=== PATIENT | female | born 1950 | race Caucasian/White ===

== ENCOUNTER 2017-01-21 05:58 | Observation (INO) | payer OTHER, MEDICAID ==
[2017-01-21] MEDS ORDERED: MAALOX/LIDO/HYOSC GI COCKTAIL 55 ML BOTTLE PO ONE (06:07)
[2017-01-21] MEDS ORDERED: ONDANSETRON 4 MG/2 ML VIAL IVP ONE (06:07)
[2017-01-21] MEDS ORDERED: NS 1,000 ML IV ONE (06:07)
--- NOTE | 2017-01-21 06:08 | CPEKG ---
Heart Rate: 60 RR Interval: 1000 P-R Interval: 236 QRSD Interval: 74 QT Interval: 424 QTC Interval: 424 P [place]: 31 QRS [place]: 42 T Wave [place]: 49 EKG Severity - ABNORMAL ECG - EKG Impression: SINUS RHYTHM EKG Impression: FIRST DEGREE AV BLOCK Electronically Signed By: Osiris Arechiga 21-Jan-2017 07:06:55
[2017-01-21 06:12] LABS: % IMMATURE GRANULYOCYTES 0.1 % (0.0-1.1); ABSOLUTE IMMATURE GRANULOCYTES 0.01 10^3/uL (0.00-0.10); ADD DIFF? NO; ADD MORPH? NO; ADD SCAN? NO; ATYPICAL LYMPHOCYTE FLAG 20 (0-99); FRAGMENT RBC FLAG 0 (0-99); HEMATOCRIT 41.5 % (38.0-47.0); HEMOGLOBIN 13.9 g/dL (12.6-16.3); LEFT SHIFT FLG 0 (0-99); LIPEMIA HEMOLYSIS FLAG 80 (0-99); MEAN CELL HEMOGLOBIN CONCENTR. 33.5 g/dL (32.4-36.7); MEAN CELL VOLUME 92.6 fL (81.5-99.8); PLATELET CLUMPS FLAG 0 (0-99); PLATELET COUNT 364 10^3/uL (150-400); RED BLOOD CELL COUNT 4.48 10^6/uL (4.18-5.33); RED CELL DISTRIBUTION WIDTH 12.8 % (11.5-15.2)
[2017-01-21 06:35] LABS: ALANINE AMINOTRANSFERASE 36 IU/L (9-52); ALBUMIN 4.3 g/dL (3.5-5.0); ALKALINE PHOSPHATASE 122 IU/L (38-126); ANION GAP 13 mEq/L (8-16); ASPARTATE AMINOTRANSFERASE 22 IU/L (14-46); BILIRUBIN,TOTAL 0.7 mg/dL (0.1-1.4); BILIRUBIN-CONJUGATED 0.3 mg/dL (0.0-0.5); BILIRUBIN-UNCONJUGATED 0.4 mg/dL (0.0-1.1); CALCIUM 9.4 mg/dL (8.5-10.4); CARBON DIOXIDE 23 mEq/l (22-31); CHLORIDE 106 mEq/L (97-110); CREATININE 0.9 mg/dL (0.6-1.0); GLOMERULAR FILTRATION RATE > 60; GLUCOSE 115 mg/dL (70-100); POTASSIUM 3.4 mEq/L (3.5-5.2); SODIUM 142 mEq/L (134-144); TOTAL PROTEIN 7.9 g/dL (6.3-8.2)
--- NOTE | 2017-01-21 06:42 | EDPHY ---
H & P Stated Complaint: chest pain/pressure on waking at approx 0430 this am Source: Patient Exam Limitations: No limitations - Personal History Tetanus Vaccine Date: last 10 years - Medical/Surgical History Hx Asthma: No Hx Chronic Respiratory Disease: Yes Hx Diabetes: No Hx Cardiac Disease: Yes Hx Renal Disease: No Hx Cirrhosis: No Hx Alcoholism: No Hx HIV/AIDS: No Hx Splenectomy or Spleen Trauma: No Other PMH: HTN, depression, GERD, right rotator cuff surgery, hiatal hernia, sleep apnea - Social History Smoking Status: Former smoker HPI/ROS: HPI The patient presents with chest and epigastric pain which began at approximately 4:30 a.m. this morning while she was lying in bed. She is brought in by ambulance. The pain is sharp, feels like gas, starts in her epigastrium and radiates to her right chest. It is moderate in severity and has been constant. It is associated with constipation. She does not have any shortness of breath, vomiting, diaphoresis or dizziness. She has had episodes of this pain before which she has attributed to gas pains.. REVIEW OF SYSTEMS Constitutional: No fever, no chills. Eyes: No discharge. ENT: No sore throat. Cardiovascular: No chest pain, no palpitations. Respiratory: No cough, no shortness of breath. Gastrointestinal: No abdominal pain, no vomiting. Genitourinary: No hematuria. Musculoskeletal: No back pain. Skin: No rashes. Neurological: No headache. PMHx: Hiatal hernia Soc Hx: Lives at home PHYSICAL General Appearance: Alert, no distress Eyes: Pupils equal and round no pallor or injection ENT, Mouth: Mucous membranes moist Respiratory: There are no retractions, lungs are clear to auscultation Cardiovascular: Regular rate and rhythm Gastrointestinal: Abdomen is soft with mild tenderness in the epigastrium without rebound or guarding Neurological: A&O, moves all extremities Skin: Warm and dry, no rashes Musculoskeletal: Neck is supple non tender Extremities: symmetrical, full range of motion Psychiatric: Patient is oriented X 3, there is no agitation (RiguzziOsiris) Constitutional: Initial Vital Signs Heart Rate 62 01/21/17 06:04 Respiratory Rate 18 01/21/17 06:04 Blood Pressure 136/109 H 01/21/17 06:04 O2 Sat (%) 98 01/21/17 06:04 O2 Delivery Mode Room Air Allergies/Adverse Reactions: celecoxib [From Celebrex] Allergy (Verified 01/21/17 08:25) Hives Penicillins Allergy (Verified 01/21/17 08:25) Itching Home Medications: Medication Instructions Recorded Lisinopril/Hydrochlorothiazide 1 each PO DAILY 01/28/16 [Zestoretic 20-25 Tablet] Meclizine HCl [Meclizine HCl 25 mg 25 mg PO BID PRN 01/28/16 (RX,OTC)] Omeprazole [Prilosec] 40 mg PO BID PRN 01/28/16 Sertraline HCl [Zoloft 100mg (*)] 100 mg PO DAILY 01/28/16 Herbals/Supplements -Info Only 1 ea PO DAILY 01/21/17 Ibuprofen [Motrin (*)] 800 mg PO DAILY PRN 01/21/17 Medical Decision Making - Diagnostics EKG Interpretation: EKG: Complete interpretation has been separately recorded in the Rev[facility] archive. Summary impression: Normal sinus rhythm, no ST segment changes (Osiris Arechiga) Imaging: Chest x-ray two view shows no infiltrate, no pneumothorax, interpreted by me, radiology interpretation is pending. (Osiris Arechiga) ED Course/Re-evaluation: 6:45 a.m.- The patient has received morphine, GI cocktail and Pepcid with some improvement in her symptoms. However, she is still uncomfortable, sitting up in bed and hyperventilating. She feels like if she could for she would feel better. I will write for additional pain medication for her and I will reassess her. 7:40 a.m.- The patient continues to have pain which is now radiating to her right arm and toward her neck. Repeat abdominal exam is benign, she has very mild epigastric tenderness. I feel bowel perforation would be unlikely. While I feel that GERD is possible, I am also concerned about ACS. I plan to admit her to the hospitalist service. 8:00 a.m.- I have discussed the case with the hospitalist service and I will order her a bed in the [facility]. The patient is aware of the plan. (Osiris Arechiga) 715: The patient is signed out to me at change of shift. The patient is admitted for further observation. Repeat troponin is ordered. Repeat EKG. Unchanged. (Alexandra Blake) Differential Diagnosis: This is a 66-year-old female with past medical history including hiatal hernia, GERD on PPI, hypertension who presents from home with chest pain that began at 4 :30 a.m. this morning. The pain begins in her epigastrium and radiates upwards. It is associated with nausea. Differential diagnosis includes gastritis, GERD, ACS, biliary colic, less likely aortic dissection given no back pain. Less likely pulmonary embolism given no hypoxia or tachycardia. (Osiris Arechiga) - Data Points Laboratory Results: Laboratory Results 01/21/17 05:58 01/21/17 05:58 01/21/17 01/21/17 05:58 05:58 WBC 7.97 10^3/uL 10^3/uL (3.80-9.50) RBC 4.48 10^6/uL 10^6/uL (4.18-5.33) Hgb 13.9 g/dL g/dL (12.6-16.3) Hct 41.5 % % (38.0-47.0) MCV 92.6 fL fL (81.5-99.8) MCH 31.0 pg pg (27.9-34.1) MCHC 33.5 g/dL g/dL (32.4-36.7) RDW 12.8 % % (11.5-15.2) Plt Count 364 10^3/uL 10^3/uL (150-400) MPV 10.0 fL fL (8.7-11.7) Neut % (Auto) 51.9 % % (39.3-74.2) Lymph % (Auto) 36.8 % % (15.0-45.0) [place] % (Auto) 6.5 % % (4.5-13.0) Eos % (Auto) 3.8 % % (0.6-7.6) Baso % (Auto) 0.9 % % (0.3-1.7) Nucleat RBC Rel Count 0.0 % % (0.0-0.2) Absolute Neuts (auto) 4.14 10^3/uL 10^3/uL (1.70-6.50) Absolute Lymphs (auto) 2.93 10^3/uL 10^3/uL (1.00-3.00) Absolute Monos (auto) 0.52 10^3/uL 10^3/uL (0.30-0.80) Absolute Eos (auto) 0.30 10^3/uL 10^3/uL (0.03-0.40) Absolute Basos (auto) 0.07 10^3/uL 10^3/uL (0.02-0.10) Absolute Nucleated RBC 0.00 10^3/uL 10^3/uL (0-0.01) Immature Gran % 0.1 % % (0.0-1.1) Immature Gran # 0.01 10^3/uL 10^3/uL (0.00-0.10) Sodium 142 mEq/L mEq/L (134-144) Potassium 3.4 mEq/L L mEq/L (3.5-5.2) Chloride 106 mEq/L mEq/L (97-110) Carbon Dioxide 23 mEq/l mEq/l (22-31) Anion Gap 13 mEq/L mEq/L (8-16) BUN 19 mg/dL mg/dL (7-23) Creatinine 0.9 mg/dL mg/dL (0.6-1.0) Estimated GFR > 60 Glucose 115 mg/dL H mg/dL (70-100) Calcium 9.4 mg/dL mg/dL (8.5-10.4) Total Bilirubin 0.7 mg/dL mg/dL (0.1-1.4) Conjugated Bilirubin 0.3 mg/dL mg/dL (0.0-0.5) Unconjugated Bilirubin 0.4 mg/dL mg/dL (0.0-1.1) AST 22 IU/L IU/L (14-46) ALT 36 IU/L IU/L (9-52) Alkaline Phosphatase 122 IU/L IU/L (38-126) Troponin I 0.013 ng/mL ng/mL (0-0.034) Total Protein 7.9 g/dL g/dL (6.3-8.2) Albumin 4.3 g/dL g/dL (3.5-5.0) Lipase 185.0 IU/L IU/L (23-300) Medications Given: Discontinued Medications Sodium Chloride (Ns) 1,000 mls @ 0 mls/hr IV ONCE ONE PRN Reason: Wide Open Stop: 01/21/17 06:08 Last Admin: 01/21/17 06:25 Dose: 1,000 mls Lorazepam (Ativan Injection) 1 mg IVP EDNOW ONE Stop: 01/21/17 06:51 Last Admin: 01/21/17 06:55 Dose: 1 mg Miscellaneous Medication (Gi Cocktail) 55 ml PO EDNOW ONE Stop: 01/21/17 06:08 Last Admin: 01/21/17 06:18 Dose: 55 ml Morphine Sulfate (Morphine) 4 mg IVP EDNOW ONE Stop: 01/21/17 06:08 Last Admin: 01/21/17 06:25 Dose: 4 mg Morphine Sulfate (Morphine) 4 mg IVP EDNOW ONE Stop: 01/21/17 07:44 Last Admin: 01/21/17 08:08 Dose: 2 mg Ondansetron HCl (Zofran) 4 mg IVP EDNOW ONE Stop: 01/21/17 06:08 Last Admin: 01/21/17 06:15 Dose: 4 mg Departure - Departure Disposition: [facility] Inpatient Acute Clinical Impression: Epigastric abdominal pain Chest pain Qualifiers: Chest pain type: unspecified Qualified Code(s): R07.9 - Chest pain, unspecified Condition: Good
[2017-01-21 06:47] LABS: TROPONIN I 0.013 ng/mL (0-0.034)
[2017-01-21] MEDS ORDERED: LORazepam 2 MG/ML INJ IVP ONE (06:50)
--- NOTE | 2017-01-21 08:39 | CPEKG ---
Heart Rate: 67 RR Interval: 896 P-R Interval: 192 QRSD Interval: 76 QT Interval: 420 QTC Interval: 444 P [place]: 41 QRS [place]: 10 T Wave [place]: 24 EKG Severity - BORDERLINE ECG - EKG Impression: SINUS RHYTHM EKG Impression: BORDERLINE T WAVE ABNORMALITIES Electronically Signed By: Alexandra Blake 21-Jan-2017 14:24:50
[2017-01-21] MEDS ORDERED: HEPARIN 5,000 UNIT/0.5 ML SYR SC ONE (09:56)
[2017-01-21] MEDS ORDERED: METOPROLOL TARTRATE 5 MG/5 ML INJ IVP ONE (09:56)
[2017-01-21] MEDS ORDERED: NITROGLYCERIN/DEXTROSE 250 ML IV SCH (10:00)
[2017-01-21] MEDS ORDERED: ASPIRIN EC 325 MG TAB PO ONE (10:25)
[2017-01-21] MEDS ORDERED: methylPREDNISolone SOD SUCC 125 MG/2 ML VIAL IVP ONE (10:28)
[2017-01-21] MEDS ORDERED: FAMOTIDINE 20 MG/NACL 50 ML IV ONE (10:28)
[2017-01-21] MEDS ORDERED: NS 1,000 ML IV SCH (10:30)
[2017-01-21] MEDS ORDERED: MIDAZOLAM 2 MG/2 ML VIAL ONE ×2 (10:31)
[2017-01-21] MEDS ORDERED: LIDOCAINE 1% 30 ML SDV ONE (10:31)
[2017-01-21] MEDS ORDERED: fentaNYL 100 MCG/2 ML INJ ONE (10:31)
[2017-01-21] MEDS ORDERED: VERAPAMIL 5 MG/2 ML VIAL ONE (10:32)
[2017-01-21] MEDS ORDERED: HEPARIN 10,000 UNIT/10 ML MDV ONE (10:32)
[2017-01-21] MEDS ORDERED: IOPAMIDOL (ISOVUE-370) 150 ML BTL IV ONE (10:32)
[2017-01-21] MEDS ORDERED: methylPREDNISolone SOD SUCC 125 MG/2 ML VIAL ONE (10:51)
[2017-01-21] MEDS ORDERED: EPINEPHrine 1 MG/10 ML SYR IVP ONE (10:51)
[2017-01-21] MEDS ORDERED: DIAZEPAM 5 MG TAB ONE (10:54)
--- NOTE | 2017-01-21 10:56 | PDGENHP ---
History and Physical History and Physical: HISTORY AND PHYSICAL CC:CHEST PAIN HISTORY: The patient was awakened at 4:30 this am by pressure/pain in epigastrium radiating to R side of chest, R arm and neck associated with nausea and numbness in both hands. She was given 4 baby aspirin at home by sales enablement consultant and brought to ER where her symptoms persisted, and she still has symptoms now on arrival to [facility]. She had a first normal troponin in ER and two nonischemic EKGs. No pleuritic pain, no leg edema, no orthopnea No SOB or paliptations, no similar episodes, no hx of heart or vascular disease. Non diabetic, no HTN or lipid disorder, no fam hx of CAD ROS: A comprehensive 10 system review revealed no other significant findings PAST MEDICAL HISTORY: Headaches Benign tumor of the uterus FAMILY MEDICAL HISTORY: No history of cardiac disease SOCIAL HISTORY: No tobacco exposure or alcohol MEDICATIONS: The patients list has been reconciled by our clinical pharmacist in the EMR. I have reviewed the list and ordered appropriate medicines. PHYSICAL EXAMINATION: Vital Signs:some mild syst HTN but otherwise nl w no fever Print Producer: Examination: General: She is in obvious discomfort trying continually to find a more comfortable position to sit in. She continues to complain of ongoing pressure in the right side of the chest and epigastrium along with nausea and discomfort in both arms; otherwise alert, oriented, good mentation Skin: warm, dry, good color, no rash HEENT: normal Neck: no mass or jvd Resps: relaxed Lungs: clear breath sounds Heart: regular, no murmur Abdomen: soft, nondistended, nontender, +BS, no mass Upper Extremities: normal Lower Extremities: no edema, warm No Bleeding or bruising Neurologic: normal speech/language, normal core driller helper, no focal weakness IV site: looks normal LABORATORY DATA: In the ER first troponin 0.01, K 3.4, wbc and Hg nl Her second troponin, which comes back just after she arrives at [facility] is elevated at 0.99 RADIOLOGY STUDIES: My review of CXR images in ER: no CHF, pneumonia, or abnormalities of Aorta or other thoracic vessels, no effusions or pneumotx 12 lead EKG: My review of ER ekg tracings: NSR with no ischemia or injury ASSESSMENT: -NSTEMI with ongoing angina pain and nausea is the most likely cause of her presenting symptoms -no sign of CHF or arrythmia at present PLANS: I have contacted Jaswinderabdoulaye Gutiérrez of [facility] and he has made Dr Birmingham aware of the situation. I have ordered morphine, NTG drip, metoprolol, and 5000 unit of heparin injection all to be given now She had 4 baby ASA at home this am. I have reviewed the patient's case in detail with Dr. Dominic Birmingham I have reviewed the patient's past medical records as part of this assessment, including
[2017-01-21] MEDS ORDERED: OXYCODONE/APAP 5/325 TAB PO PRN (11:43)
[2017-01-21] MEDS ORDERED: ATROPINE SULFATE 1 MG/10 ML SYR IVP PRN (11:43)
[2017-01-21] MEDS ORDERED: ONDANSETRON 4 MG/2 ML VIAL IVP PRN (11:43)
[2017-01-21] MEDS ORDERED: NITROGLYCERIN 0.4 MG BTL SL PRN (11:43)
[2017-01-21] MEDS ORDERED: HYDROCODONE/APAP 5/325 TAB PO PRN (11:43)
--- NOTE | 2017-01-21 11:43 | PDDXCAT ---
Diagnostic Cath Note - . Date: 01/21/17 Ferryboat Operator: Vinnie Indication: CCC Class III and IV angina on medical treatment - Procedure Access: left wrist Procedure: left heart catheterization, coronary angiography, left ventriculogram - Materials Left Heart Cath size: 5F Left Heart Cath materials: JL3.5, JR4.0, pigtail - Findings-Left Heart Catheterization LM: Normal LAD: less than 10% plaque proximally otherwise normal LCX: normal RCA: dominant: Normal EDP: 25 mm of mercury LVEF: 70% Wall motion: normal Complications: none Estimated blood loss: <50ml Closure method: TR Band Assessment: Minimal nonobstructive atherosclerotic cardiovascular disease. Chest pain syndrome of uncertain etiology. Normal left ventricular systolic function. Elevated filling pressure consistent with hypertensive cardiomyopathy. Plan: Aggressive medical therapy with control blood pressure, LDL cholesterol less than 70 mg/dL, daily aspirin with clinical follow-up. Broad differential to include GI source of elevation in troponin referred chest pain versus potential pulmonary source. Results will be conveyed to Dr. Dawn of the medicine service. Patient Problems: Problems Problem Status Onset Nausea, vomiting, and diarrhea Acute Gastroenteritis Acute Abdominal pain Acute Epigastric abdominal pain Acute Chest pain Acute
--- NOTE | 2017-01-21 11:45 | GCON ---
CARDIOLOGY CONSULTATION SUPERVISING SEMICONDUCTOR PACKAGES PLATEMAKER: Dr. Dominic Birmingham. CHIEF COMPLAINT: Right upper anterior chest pressure with radiation down the right arm and into the jaw and chest. HISTORY OF PRESENT ILLNESS: The patient is a 66-year-old female with noted history of hypertension, sleep apnea, GERD, previous smoker, and osteoarthritis. She reports she had been in her normal sta te of health for the last 2-3 days, waking up this morning with a sudden onset of right anterior iguliano st pressure with radiation into her right arm and into her jaw. She reported initially thinking marshall t this had been a more severe case of her GERD. But, after not subsiding and unable to get back to sleep, she came to the emergency department for further evaluation. She reports no shortness of kaye ath with symptoms or diaphoresis. Has had no palpitations, lightheadedness, near-syncope, or syncop al events. She does report 2 weeks ago of a previous sinus infection, but no other significant medi rosa problems since then. Once in the emergency department, her initial electrocardiogram showed sin us rhythm with nonspecific T-wave abnormalities. Initial troponin was negative. Patient's chest pr essure did subside, and she was admitted to the ACU. At the time of my examination at 9:15, she rep orted that her chest pressure had increased again. Her 2nd troponin has been done, which shows an e levation to 0.990. Electrocardiogram remains unchanged. The patient reporting symptoms increasing. Dr. Dawn is at the bedside. He has started her on heparin and ordered a dose of metoprolol IV t o be given. Patient has significant cardiac risk factors that include age, hypertension. She is un known about her cholesterol status and she denies of any significant family history of coronary maynor ry disease. She is a previous smoker. PAST MEDICAL HISTORY: Includes hypertension, osteoarthritis, GERD, sleep apnea (CPAP), and vertigo. PAST SURGICAL HISTORY: Includes C-sections. FAMILY HISTORY: Reporting mother of renal failure in her 80s. Father of prostate cancer in his 70s. She did have a sister who recently in her 60s of sudden cardiac of un known origin. She is uncertain of the cause. She also reports that she had a son who was 42 years old who due to mixing medications and alcohol. SOCIAL HISTORY: She is a retired nanny. She is single. She has 3 children, 2 are still alive and well. She reports occasional alcohol use, previous smoker, quitting greater than 20 years ago. Hardy s report that she uses marijuana for her osteoarthritis. She denies of any other illicit drug use. NOTE: The patient is a Sikhism and requests no blood products. ALLERGIES: 1. Penicillin. 2. Celebrex. 3. Questioning possible CT scan contrast. MEDICATIONS: Medications at home include: 1. Lisinopril/hydrochlorothiazide 20/25 one pill daily. 2. Meclizine 25 mg p.o. b.i.d. p.r.n. 3. Omeprazole 40 mg p.o. b.i.d. p.r.n. 4. Zoloft 100 mg p.o. daily. 5. Ibuprofen 800 mg p.o. daily p.r.n. REVIEW OF SYSTEMS: A 10-point review of systems done on patient. All negative except as mentioned above. PHYSICAL EXAMINATION: GENERAL APPEARANCE: Moderately obese female. She is alert and orie nted to person, place, time, and situation. Reporting some mild chest pressure. VITAL SIGNS: [facility] vital signs are blood pressure of 130/84. Heart rate is 54, in sinus bradycardia on the monitor . Respirations are 16. Saturating 92% on 2 L nasal cannula. HEENT: Head is normocephalic. Lips and tongue are pink and moist with no signs of cyanosis. Conjunctivae pink. NECK: Trachea is midl ine. No signs of jugular vein distention. No auscultated bruits. RESPIRATORY: Lungs clear to aus cultation. No rhonchi, rales, or wheezes. No accessory muscle use. No intercostal muscle retracti on. CARDIAC: Regular rate, regular rhythm. S1, S2. No S3, S4, gallops, rubs, or murmur noted. A BDOMEN: Soft, nontender. Bowel sounds x4 quadrants. No organomegaly. No palpable masses. SKIN: [place], warm, dry. No cyanosis, no clubbing, no peripheral edema. VASCULAR: +2 carotids bilateral, +2 radials bilateral, +1 dorsal pedal and posterior tibial pulses bilateral. NEURO: Cranial nerve s 2-12 grossly intact. LABORATORY STUDIES: Laboratory studies drawn to this morning shows WBC 7.97, hemoglobin of 13.9, he matocrit of 41.5, platelet count 364. Sodium 142, potassium 3.4, chloride 106, CO2 of 23, BUN 19, c reatinine 0.9. Glucose 115, calcium 9.4, total bilirubin 0.7, AST 22, ALT 36, alkaline phosphate 12 2. Troponin 0.013. Followed up troponin done at 8:30 was 0.99. Total protein 7.9, albumin 4.3, li pase 185. PROCEDURES: Initial electrocardiogram shows sinus rhythm, first-degree AV block, nonspecific T-wave abnormalities. Repeated electrocardiogram done at 8:33 shows sinus bradycardia, no significant change. Chest x-ray showed no significant cardiopulmonary process. ASSESSMENT/PLAN: 1. Chest pressure: Concerning for acute coronary syndrome due to elevated troponin and ongoing giuliano st pressure. I have discussed this with Dr. Birmingham, and it is decided that the best step for furt her evaluation would be for us to take the patient more urgent to the cardiac catheterization for fu rther evaluation of her coronary anatomy. Risks and benefits of this procedure were explained to th e patient and her friend. They both verbalized understanding and are wanting to proceed. The patie nt is a Sikhism and reports she does want any blood products. She had been told that this does increase her risk. She verbalizes understanding. She has had an aspirin therapy, she has bee n started on heparin, and she has been started on metoprolol tartrate. [facility] for further cardiac catheterizat ion. Patient reports that she had a CT angio done a few years ago, and reported a significant rash with contrast injection. I will premedicate her with Solu-Medrol, Benadryl, and Pepcid prior to her procedure. 2. Hypertension: Blood pressure at this current time appears to be fairly well controlled. Will c ontinue her on current home medications. May need adjustments post coronary angiogram. Will monito r. 3. Sleep apnea: Patient will continue using home CPAP machine as above. 4. Gastroesophageal reflux disease: Patient will continue on home dosage of Prilosec. Thank you for this consultation. We will be glad to follow along with you. /[id number]/MODL
[2017-01-21 13:12] LABS: ALANINE AMINOTRANSFERASE 28 IU/L (9-52); ALBUMIN 3.6 g/dL (3.5-5.0); ALKALINE PHOSPHATASE 100 IU/L (38-126); ASPARTATE AMINOTRANSFERASE 50 IU/L (14-46); BILIRUBIN,TOTAL 0.7 mg/dL (0.1-1.4); BILIRUBIN-CONJUGATED 0.3 mg/dL (0.0-0.5); BILIRUBIN-UNCONJUGATED 0.4 mg/dL (0.0-1.1); TOTAL PROTEIN 6.7 g/dL (6.3-8.2)
[2017-01-21 13:36] LABS: CK-MB INTERPRETATION POSITIVE (NEGATIVE)
--- NOTE | 2017-01-21 17:52 | CPEKG ---
Heart Rate: 49 RR Interval: 1224 P-R Interval: 212 QRSD Interval: 72 QT Interval: 452 QTC Interval: 409 P [place]: 40 QRS [place]: 21 T Wave [place]: 69 EKG Severity - OTHERWISE NORMAL ECG - EKG Impression: SINUS BRADYCARDIA Electronically Signed By: Osiris Arechiga 22-Jan-2017 08:02:10
[2017-01-22 08:17] VITALS: RESP 16
--- NOTE | 2017-01-22 08:26 | ECHO ---
[id number] + + [address] : : [place] [address] : : [phone] + + Adult Echocardiographic Report + ----+ :Name: Roldan MERCADO Date: 01/22/2017 07:52 AM : : Hospital Admission Number: [id number] Location: 141: :: 1950 Gender: Female Height: 64 in : :Age: 66 yrs Race: WH Weight: 205 lb : :Reason For Study: Eval LV Fx : : BSA: 2.0 meters2 : :History: Chest Pain, Question Pericarditis : + ----+ MMode/2D Measurements \T\ Calculations IVSd: 0.85 cm LVIDd: 4.4 cm FS: 46.8 % Ao root diam: 3.1 cm LVPWd: 1.0 cm LVIDs: 2.3 cm EDV(Teich): 85.8 ml ACS: 1.5 cm ESV(Teich): 18.5 ml EF(Teich): 78.4 % Normal Measurement Values: + + :LVIDd (3.5-5.7cm) IVSd (0.6-1.1cm) LVPWd (0.6-1.1cm) Aortic Root (2.0-3.7cm)Left Atrium (1.5-4.0cm): :LV Vol(d) (76-115ml) LV Vol(s) (29-48ml) Ejec Fraction (50-65%)PV [place] (0.6- 1.2m/s) TV [place] (0.4-1.0m/s) : :MV E [place] (0.8-1.0m/s)MV A [place] (0.3-1.0m/s)LVOT [place] (0.7-1.2m/s) Asc Ao [place] ( 0.9-1.8m/s) : + + Doppler Measurements \T\ Calculations MV E max triston: Ao V2 max: LV V1 max: PA V2 max: 91.8 cm/sec 129.0 cm/sec 101.0 cm/sec 130.0 cm/sec MV A max triston: Ao max PG: LV V1 max PG: PA max P.4 cm/sec 6.7 mmHg 4.1 mmHg 6.8 mmHg MV E/A: 1.1 TR max triston: 267.0 cm/sec TR max P.5 mmHg RAP systole: 5.0 mmHg RVSP(TR): 33.5 mmHg Left Ventricle The left ventricle is normal in size. There is normal left ventricular wall thickness. The left ventricular ejection fraction is normal. There is Doppler evidence for diastolic dysfunction. Ejection Fraction = 78%. The left ventricular wall motion is normal. Right Ventricle The right ventricle is normal in size and function. Atria The left atrial size is normal. Right atrial size is normal. Mitral Valve The mitral valve is normal in structure and function. There is no evidence of mitral valve prolapse. There is no mitral valve stenosis. There is trace mitral regurgitation. Tricuspid Valve There is trace to mild tricuspid regurgitation. Right ventricular systolic pressure is normal. Aortic Valve The aortic valve is normal in structure and function. The aortic valve is trileaflet. There is no aortic stenosis. There is no aortic insufficiency. Pulmonic Valve The pulmonic valve is normal in structure and function. There is no pulmonic valvular regurgitation. Great Vessels The aortic root is normal size. Pericardium/Pleural There is no pericardial effusion. Conclusion A complete two-dimensional transthoracic echocardiogram was performed (2D, M-mode, Doppler and color flow Doppler). The left ventricular ejection fraction is normal. There is Doppler evidence for diastolic dysfunction. Ejection Fraction = 78%. The left ventricular wall motion is normal. The right ventricle is normal in size and function. The mitral valve is normal in structure and function. There is trace mitral regurgitation. There is trace to mild tricuspid regurgitation. Right ventricular systolic pressure is normal. The aortic valve is normal in structure and function. The aortic valve is trileaflet. There is no pericardial effusion. Final Reading Physician: Indiana Clark signed on 01/22/2017 08:25 AM Ordering Physician: Etienne Dawn Performed By: Fran Box, GERMANCS
[2017-01-22] MEDS ORDERED: NON-FORMULARY NEW DRUG (Omeprazole [Prilosec] 40 MG) PO PRN (09:12)
[2017-01-22] MEDS ORDERED: PANTOPRAZOLE SODIUM 40 MG TAB PO PRN (09:16)
[2017-01-22 09:17] LABS: CHOLESTEROL 153 mg/dL (140-220); HIGH DENSITY LIPOPROTEIN 51 mg/dL (40-85); LDL/HDL RATIO 1.59 RATIO (1.00-3.22); LOW DENSITY LIPOPROTEIN 81 mg/dL (80-100); NON-HIGH DENSITY LIPOPROTEIN 102 mg/dL (90-129); TRIGLYCERIDE 105 mg/dL (35-135); VERY LOW DENSITY LIPOPROTEINS 21 mg/dL (8-25)
[2017-01-22] MEDS ORDERED: CARVEDILOL 3.125 MG TAB PO SCH (09:30)
[2017-01-22] MEDS ORDERED: ASPIRIN EC 81 MG TAB PO SCH (09:30)
[2017-01-22] MEDS ORDERED: LISINOPRIL 10 MG TAB PO SCH (09:30)
--- NOTE | 2017-01-22 10:21 | CPEKG ---
Heart Rate: 77 RR Interval: 779 P-R Interval: 176 QRSD Interval: 70 QT Interval: 364 QTC Interval: 412 P [place]: 58 QRS [place]: 37 T Wave [place]: 206 EKG Severity - ABNORMAL ECG - EKG Impression: SINUS RHYTHM EKG Impression: NONSPECIFIC T ABNORMALITIES, DIFFUSE LEADS Electronically Signed By: Dominic Birmingham 22-Jan-2017 14:44:38
[2017-01-22 12:05] VITALS: BP 110/70; PULSE 64; TEMP 97.3; O2SAT 96
[2017-01-22] MEDS ORDERED: IBUPROFEN 600 MG TAB PO SCH (14:00)
--- NOTE | 2017-01-22 14:20 | PDDCSUM ---
Discharge Summary Discharge Summary: DISCHARGE DIAGNOSES: -Suspected pericarditis -Elevated cardiac troponin and cardiac CK MB of uncertain etiology -minimal coronary plaque on angiography -hypertension -atrophic nonfunctioning right kidney, newly diagnosed at this time, chronic and presumably due to obstructive uropathy CONSULTANTS: Dr. Dominic Birmingham PROCEDURES: echocardiogram - No significant abnormalities, no effusions or other signs of pericarditis Coronary angiography - minimal coronary plaque disease otherwise unremarkable heart HOSPITAL COURSE SUMMARY: this patient was awakened during sleep at home with a severe pressure pain in her epigastrium and right chest going into the right shoulder and arm and neck. Is associated with nausea. She took 4 baby aspirin home and was brought in the hospital by ambulance. On arrival here she had the same ongoing symptoms in the persisted. Her initial vital signs were normal, oxygenation normal, EKG unremarkable and troponin normal. Ears cardiac rhythm was sinus. She did not have any pleuritic symptoms, leg pain or leg swelling. There is no fever. Chest x-ray was unremarkable. During the early part of her assessment she had a 2nd troponin that was 0.99 associated with ongoing symptoms identical to presenting symptoms. She was prepared and taken into the angiogram suite where coronary angiography showed minimal diffuse coronary plaque but no significant stenoses. There are no thrombi and her and ventricle was functioning normally with normal dimensions. Following this she had gradual improvement of her presenting discomforts which had nearly resolved by the time of discharge. At the time of discharge a 3rd troponin had been done which was elevated at 13. echocardiogram showed no pericardial effusion, there is no friction rub, and a repeat EKG did not show any evidence of pericarditis. Her case was discussed in detail again with Dr. Dominic Birmingham. It is felt that the patient probably has a pericarditis that is not showing up by exam and EKG. She is started on some beta-lara and statin and daily aspirin and she is started on some ibuprofen for possible pericarditis. She is felt to be stable for discharge to home and will follow up early next week with Dr. Birmingham in [facility]iology Clinic. MEDICATION CHANGES: - Elimination of her diuretic and decrease her lisinopril from 20-10 mg daily -Addition of low-dose Coreg, and statin and daily aspirin -Ibuprofen 600 mg three times daily until follow-up in Cardiology Clinic next leak FOLLOW-UP PLAN: Dr. Birmingham next week Greater than 35 minutes bedside and care coordination time today
--- NOTE | 2017-01-22 18:33 | PDCARPN ---
Cardiology Progress Note Chief Complaint: Patient reports she has not had much sleep since being in the hospital. Assessment/Plan: Assessment: Patient was seen at 8:15 a.m. this mornin-year-old female with significant history of hypertension, sleep apnea, GERD, previous smoker, osteoarthritis. Admitted for subacute chest pressure,, noted to have mildly elevated troponin yesterday morning at 0.99. No significant EKG changes. Patient was taken to the cardiac catheterization lab urgently, findings were normal left main, lad with 10% proximal plaque, but no flow limiting disease. RCA and circumflex were normal. LV EF was 70%, mildly elevated EDP at 25 mm Hg. Troponin post procedure was 12.8, CK-MB percentage at 10.9. Echocardiogram done this morning showing normal LV systolic function, EF of 78%, no wall motion abnormality. Diastolic dysfunction noted, trace MR, trace to mild TR, RVSP normal, no pericardial effusion. D-dimer 0.48. Plan: 1. Suspected pericarditis: Elevated cardiac enzymes with no flow limiting coronary artery disease based off cardiac catheterization. EKG does not show any evidence of pericarditis. No pericardial effusion noted. Patient reporting improvement in symptoms NSAIDS. Will start on around the clock ibuprofen for the next week. Will add carvedilol to medication regime. Plan on follow-up in Cardiology Clinic, potential repeat echocardiogram done early next week. 2. Non flow limiting CAD: Coronary angiogram showed no evidence of flow disease. Patient started on aspirin therapy of 81 mg p.o. q.day. LDL was calculated at 81. Goal would be for less than 70. Started on atorvastatin at 10 mg p.o. q.day, will need a repeat fasting lipid and liver panel in 6-8 weeks. 3. Hypertension: Blood pressure has been within normal limits. LV noted to be hyperdynamic, carvedilol added to medication regime. Have discontinue patient' s home hydrochlorothiazide at this time, continue reduce lisinopril dose with the addition of carvedilol, re-evaluate during next office visit. Patient to be discharged home, post cardiac catheterization discharge instructions went over with patient. Follow-up appointment has been made. Patient, testing, laboratory studies, and plan have been discussed in great detail with Dr. Birmingham 01/22/17 18:30 Subjective: Patient denies of any chest pressure, pain, orthopnea, PND, edema, palpitations , near-syncope, or syncopal events. Reviewed/Discussed With: hospitalist (Dr Dawn), other (Dr Birmingham) Objective: Vital Signs (8 Hrs) Temp Pulse Resp BP Pulse Ox 01/22/17 12:04 36.3 C 64 16 110/70 96 Intake/Output (24 Hrs) 01/21/17 01/22/17 01/23/17 05:59 05:59 05:59 Intake Total 1000 Balance 1000 Intake: IV Infused (ml) 1000 Other: Weight 92.986 kg Result Diagrams: 01/21/17 05:58 01/21/17 05:58 Cardiac Labs: Cardiac Lab Results (72 Hrs) 01/21/17 01/21/17 01/21/17 18:30 12:45 08:30 CK-MB (CK-2) Fraction 47.90 H Troponin I 12.800 H 0.990 H - Physical Exam Constitutional: WDWN, healthy appearing, no apparent distress Ears, Nose, Mouth, Throat: moist mucous membranes Cardiovascular: regular rate and rhythm, no murmurs, no rubs, no gallops, pulses symmetric bilat, No jugular vein distention, No carotid bruit Peripheral Pulses: 1+: dorsalis-pedis (R), dorsalis-pedis (L), 2+: carotid (R), carotid (L) Respiratory: clear to auscultate bilat, no crackles, no wheezes Gastrointestinal: normoactive bowel sounds, no tenderness Skin: warm, no edema, other (Left wrist, catheter insertion site, with no redness swelling drainage or hematoma. Mild ecchymosis noted at insertion site. Capillary refill within normal limits to left hand.) Neurologic: AAOx3, CN II-XII grossly intact Psychiatric: cooperative, interactive, following commands, not anxious ICD10 Worksheet Patient Problems: Problems Problem Status Onset Abdominal pain Acute Chest pain Acute Epigastric abdominal pain Acute Gastroenteritis Acute Nausea, vomiting, and diarrhea Acute
[2017-01-22] MEDS ORDERED: ATORVASTATIN CALCIUM 10 MG TAB PO SCH (21:00)
== END 2017-01-22 12:52 | disposition home or self-care (01) ==
LOC: EDUNIT# → F1N 09:02 → F2W 11:34 → F1N 12:21
PROVIDERS: ADMIT Internal Medicine; ATTEND Internal Medicine
PROC: 4A023N7 Measurement of Cardiac Sampling and Pressure, Left Heart, Percutaneous Approach (ICD-10-PCS; principal; 2017-01-21)
PROC: B2111ZZ Fluoroscopy of Multiple Coronary Arteries using Low Osmolar Contrast (ICD-10-PCS; principal; 2017-01-21)
PROC: B2151ZZ Fluoroscopy of Left Heart using Low Osmolar Contrast (ICD-10-PCS; principal; 2017-01-21)
DX: R07.9 Chest pain, unspecified (principal); I11.9 Hypertensive heart disease without heart failure; F32.9 Major depressive disorder, single episode, unspecified; K21.9 Gastro-esophageal reflux disease without esophagitis; K44.9 Diaphragmatic hernia without obstruction or gangrene; G47.33 Obstructive sleep apnea (adult) (pediatric); Z87.891 Personal history of nicotine dependence
CPT/HCPCS: 71020; 93005; 93306; 93458; 96361; 96372; 96374; 96375; 96376; 99285; C1769; G0378; J1200; J1644; J2250; J2405; J3010; Q9967